=== PATIENT | female | born 1970 | race Caucasian/White ===

== ENCOUNTER 2017-05-14 08:53 | Emergency (ER) | payer SELFPAY ==
[2017-05-14] MEDS ORDERED: Ondansetron ODT TAB* 4 MG SL ONE (09:47)
[2017-05-14] MEDS ORDERED: Ibuprofen TAB* 600 MG PO ONE (09:47)
[2017-05-14] MEDS ORDERED: Cyclobenzaprine TAB* 10 MG PO ONE (09:47)
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
[2017-05-14 12:32] VITALS: BP 127/90
== END 2017-05-14 12:31 | disposition home or self-care (01) ==
LOC: ED 08:53
DX: S16.1XXA Strain of muscle, fascia and tendon at neck level, initial encounter (principal); R51 Headache; F41.9 Anxiety disorder, unspecified; V49.9XXA Car occupant (driver) (passenger) injured in unspecified traffic accident, initial encounter; Y93.89 Activity, other specified; Y92.89 Other specified places as the place of occurrence of the external cause
CPT/HCPCS: 71020; 72125; 72131; 99282; A9270-GY